=== PATIENT | female | born 1975 | race Caucasian/White ===

== ENCOUNTER 2016-08-13 07:40 | Emergency (ER) | payer OTHER ==
--- NOTE | 2016-08-13 10:07 | DIAGNOSTIC IMAGING REPORT ---
PROCEDURE: CT ABDOMEN/PELVIS W/O CONTRAST INDICATION: Left flank pain. Initial encounter. TECHNIQUE: Noncontrast axial images were obtained of the entire abdomen and pelvis with sagittal and coronal reformations. COMPARISON: None. FINDINGS: ABDOMEN: Mild bibasilar infiltrates versus atelectasis. Heart size is normal. Liver, gallbladder, pancreas, spleen and adrenal glands are normal. Normal kidneys and ureters without calculi or hydronephrosis. Minor atherosclerosis of the aorta. Nonspecific bowel gas pattern. PELVIS: Normal appendix. IUD in place. Normal bladder without calculi. No pelvic mass, free fluid or inflammatory changes. Bones are unremarkable. IMPRESSION: 1. No evidence of urolithiasis 2. IUD in place 3. Small bibasilar infiltrates versus atelectasis 4. Results discussed with Dr. Nolan All CT scans at this facility use dose modulation, iterative reconstruction, and/or weight-based dosing when appropriate to reduce radiation dose to as low as reasonably achievable.
--- NOTE | 2016-08-13 10:41 | ED NURSING NOTES ---
Clinical Report - Nurses [facility] [address] [place] [address] 08/13/2016 7:39 Patient: ENOCH GRIFFITH TRIAGE Triage time 07:59. Acuity: LEVEL 3. Chief Complaint: (LEFT SIDED PAIN). Alert. SEPSIS SCREEN: Sepsis Screen. Negative (no infection suspected/documented). --08:04 Ashlee Lopez R.N. 07:59 08/13/16. BP: 124/74. HR: 82. RR: 18. O2 saturation: 96%. Temp: 98.7 F. Pain level now: 08/20. --08:04 Ashlee Lopez R.N. Weight: 78.4 kg stated. Height/Length: 62 inches Per Patient. BMI: 31.6. --08:01 Ashlee Lopez R.N. Medications Albuterol Sulfate Inhalation. --08:01 Ashlee Lopez R.N. Allergies None. --08:01 Ashlee Lopez R.N. History Arrived by private vehicle, and unaccompanied. Primary physician ([facility] in [place]). This started yesterday. PAST MEDICAL HX: Uses an intrauterine device. Denies current . SOCIAL HX: Heavy tobacco smoker (cigarette)- less than 1 pack per day. No alcohol use. NUTRITIONAL RISK ASSESSMENT: The nutritional risk assessment revealed no deficiencies. FUNCTIONAL ASSESSMENT: Functional assessment: no impairments noted. --08:04 Ashlee Lopez R.N. PROBLEMS: Epicondylitis. --08:02 Ashlee Lopez R.N. ADDITIONAL SURGERIES: C sections x 2. Foot surgery. --08:02 Ashlee Lopez R.N. Interventions ID band on patient. To room. --08:04 Ashlee Lopez R.N. PHYSICAL ASSESSMENT 08:04 08/13/16. GENERAL / NEURO / PSYCH: Alert. Oriented X 4. Appears in no acute distress. RESPIRATORY: Respirations not labored. --08:04 Ashlee Lopez R.N. NURSING PROGRESS NOTES 08:04 08/13/16. Patient gowned. Patient identifiers checked. Call light placed in reach. Bed placed in lowest position. Patient ready for evaluation- chart flagged. --08:04 Ashlee Lopez R.N. 09:22 08/13/2016 Toradol (Ketorolac Tromethamine) IM 60 mg given. Given in the left gluteus miguel. Allergies verified and confirmed 5 rights. --09:22 Ashlee Lopez R.N. DISPOSITION / DISCHARGE Departure time: 1049. No learning barriers present. Discharge instructions provided and reviewed. Reviewed medication(s) information. Prescription(s) given to the patient. Reviewed referral to family practice for followup. Verbalized understanding. Written instructions provided. The patient was discharged home. She left the Emergency Department ambulatory and via private vehicle. --10:52 Ashlee Lopez R.N. 10:49 08/13/16. BP: 117/65. HR: 63. RR: 18. O2 saturation: 95%. Temp: 98.6 F. Pain level now: 05/23. --10:52 Ashlee Lopez R.N. Locked/Released at 08/13/2016 13:22 by Ashlee Lopez R.N.
--- NOTE | 2016-08-13 10:41 | ED NURSING NOTES ---
Clinical Report - Nurses [facility] [address] [place] [address] 08/13/2016 7:39 Patient: ENOCH GRIFFITH TRIAGE Triage time 07:59. Acuity: LEVEL 3. Chief Complaint: (LEFT SIDED PAIN). Alert. SEPSIS SCREEN: Sepsis Screen. Negative (no infection suspected/documented). --08:04 Ashlee Lopez R.N. 07:59 08/13/16. BP: 124/74. HR: 82. RR: 18. O2 saturation: 96%. Temp: 98.7 F. Pain level now: 08/20. --08:04 Ashlee Lopez R.N. Weight: 78.4 kg stated. Height/Length: 62 inches Per Patient. BMI: 31.6. --08:01 Ashlee Lopez R.N. Medications Albuterol Sulfate Inhalation. --08:01 Ashlee Lopez R.N. Allergies None. --08:01 Ashlee Lopez R.N. History Arrived by private vehicle, and unaccompanied. Primary physician ([facility] in [place]). This started yesterday. PAST MEDICAL HX: Uses an intrauterine device. Denies current . SOCIAL HX: Heavy tobacco smoker (cigarette)- less than 1 pack per day. No alcohol use. NUTRITIONAL RISK ASSESSMENT: The nutritional risk assessment revealed no deficiencies. FUNCTIONAL ASSESSMENT: Functional assessment: no impairments noted. --08:04 Ashlee Lopez R.N. PROBLEMS: Epicondylitis. --08:02 Ashlee Lopez R.N. ADDITIONAL SURGERIES: C sections x 2. Foot surgery. --08:02 Ashlee Lopez R.N. Interventions ID band on patient. To room. --08:04 Ashlee Lopez R.N. PHYSICAL ASSESSMENT 08:04 08/13/16. GENERAL / NEURO / PSYCH: Alert. Oriented X 4. Appears in no acute distress. RESPIRATORY: Respirations not labored. --08:04 Ashlee Lopez R.N. NURSING PROGRESS NOTES 08:04 08/13/16. Patient gowned. Patient identifiers checked. Call light placed in reach. Bed placed in lowest position. Patient ready for evaluation- chart flagged. --08:04 Ashlee Lopez R.N. 09:22 08/13/2016 Toradol (Ketorolac Tromethamine) IM 60 mg given. Given in the left gluteus miguel. Allergies verified and confirmed 5 rights. --09:22 Ashlee Lopez R.N. DISPOSITION / DISCHARGE Departure time: 1049. No learning barriers present. Discharge instructions provided and reviewed. Reviewed medication(s) information. Prescription(s) given to the patient. Reviewed referral to family practice for followup. Verbalized understanding. Written instructions provided. The patient was discharged home. She left the Emergency Department ambulatory and via private vehicle. --10:52 Ashlee Lopez R.N. 10:49 08/13/16. BP: 117/65. HR: 63. RR: 18. O2 saturation: 95%. Temp: 98.6 F. Pain level now: 05/23. --10:52 Ashlee Lopez R.N. Locked/Released at 08/13/2016 13:22 by Ashlee Lopez R.N.
--- NOTE | 2016-08-13 10:41 | ED ORDER SUMMARY ---
..... Patient: ENOCH GRIFFITH OrderSheet [facility] VisitID: [id number] [place] [address] 40y, F Registration Date/Time: 08/13/2016 ORDER SHEET Weight: 78.4 kg (stated) Allergies: None GENERAL ORDERS: UA-Culture if indicated Urgent (08:29 08/13/2016 LSullivan R.N. verbal order read back to Jean-Pierre VALLES) (Ack 8:31 LNations ER Tech1) (9:18 LSullivan R.N.) Urine Urgent (08:30 08/13/2016 LSullivan R.N. verbal order read back to Jean-Pierre VALLES) (Ack 8:31 LNations ER Tech1) (9:18 LSullivan R.N.) CT Abd/Pel wo Cont Urgent (09:15 08/13/2016 Vikas VALLES) (Ack 9:16 LNations ER Tech1) (13:21 LSullivan R.N.) MEDICATION ORDERS: Toradol IM 60 mg (NOW) (09:15 08/13/2016 Vikas VALLES) (Ack 9:18 LSullivan R.N.) (9:22 LSullivan R.N.) IV FLUIDS: ORDER SHEET NOTES: [Electronically signed by Gloria Nolan MD (10:55 08/13/2016)] [Electronically signed by Ashlee Lopez R.N. (13:22 08/13/2016)] [Electronically locked/signed by Ashlee Lopez R.N. (13:22 08/13/2016)]
--- NOTE | 2016-08-13 10:41 | ED CLINICAL REPORT ---
Clinical Report - Physicians/Mid Levels [facility] [address] [place] [address] 08/13/2016 7:39 Patient: ENOCH GRIFFITH Time Seen: 09:04. Arrived- By private vehicle. Historian- patient. HISTORY OF PRESENT ILLNESS Chief Complaint: FLANK PAIN. It is described as "pain" and it is described as located in the left flank. This started yesterday and is still present. At its maximum, severity described as moderate. When seen in the E.D., severity described as moderate. Modifying factors- worsened by movement, cough, deep breaths and supine position. Not relieved by anything. No nausea, loss of appetite, vomiting or diarrhea. (Patient states that she has not been doing any heavy lifting or any twisting.). Similar symptoms previously: None. Recent medical care: Not recently seen/assessed. REVIEW OF SYSTEMS No constipation, black stools, hematemesis, difficulty with urination or pain with urination. No urinary frequency, bloody stools, fever, headache or sore throat. No blurred vision, chest pain, difficulty breathing, cough or joint pain. No skin rash, chills or back pain. Denies current . All systems otherwise negative, except as recorded above. PAST HISTORY Problems: Epicondylitis. Additional Surgeries: C sections x 2. Foot surgery. Medications: Albuterol Sulfate Inhalation. Allergies: None. SOCIAL HISTORY Smoker- current status unknown. No alcohol use or drug use. ADDITIONAL NOTES The nursing notes have been reviewed. PHYSICAL EXAM Vital Signs: 08/13/2016 07:59 BP: 124/74. HR: 82. RR: 18. O2 saturation: 96%. Temp: 98.7 F. Pain level now: 5/10. Have been reviewed. Appearance: Alert. Oriented X3. No acute distress. Eyes: Pupils equal, round and reactive to light. Eyes normal inspection. ENT: Nose normal. Neck: Normal inspection. CVS: Normal heart rate and rhythm. Heart sounds normal. Pulses normal. Respiratory: No respiratory distress. Breath sounds normal. (Pt has tenderness at the inferior-most point of the L anterior rib cage, in the mid-clavicular line.). Abdomen: Soft. Moderate tenderness (L flank). Back: Normal inspection. No CVA tenderness. Skin: Skin warm and dry. Normal skin color. No rash. Normal skin turgor. Extremities: Extremities exhibit normal ROM. No lower extremity edema. Neuro: Oriented X 3. No motor deficit. No sensory deficit. LABS, X-RAYS, AND EKG Abdominal CT: Normal study. Normal aorta. Normal liver, spleen, pancreas, gallbladder and adrenals. Normal kidneys. Uterus normal. Adnexa normal. Bladder normal. Appendix normal. No mass. No free fluid. No bony lesion. No diverticulitis. Study type: renal stone evaluation; abdomen and pelvis. Abdominal CT performed without contrast. The study was independently viewed by me, interpreted by the radiologist and contemporaneously by me and discussed with the radiologist. Prior studies were not available for comparison. Laboratory Tests: UA-Culture if indicated: (J CARLOS: 08/13/2016 08:24) ( [facility] 08/13/2016 08:46) Final results Test Result Flag Units (Reference) URINE COLOR YELLOW URINE APPEARANCE CLEAR URINE GLUCOSE NEGATIVE (NEGATIVE) URINE BILIRUBIN NEGATIVE (NEGATIVE) URINE KETONE NEGATIVE (NEGATIVE) URINE SPECIFIC GRAVITY 1.020 (1.010-1.030) URINE PH 6.0 (5.0-8.0) URINE PROTEIN NEGATIVE (NEGATIVE) URINE UROBILINOGEN 0.2 EU/dL (0.2-1.0) URINE NITRITE NEGATIVE (NEGATIVE) URINE BLOOD 1+ (NEGATIVE) URINE LEUK ESTERASE NEGATIVE (NEGATIVE) URINE RBC 0-1 rbc/hpf (0-1) URINE WBC 1-3 wbc/hpf (0-1) URINE EPITHELIAL CELLS 1-3 EPI/hpf (0-5) URINE BACTERIA FEW (1+) (NONE SEEN) URINE COMMENT CULT NOT INDICATED URINE CULTURES ARE SET-UP BASED ON THE FOLLOWING CRITERIA:POSITIVE NITRITEPOSITIVE LEUKOCYTE ESTERASEGREATER THAN 10 WHITE BLOOD CELLSMODERATE (2+) OR GREATER BACTERIA Urine: (J CARLOS: 08/13/2016 08:24) ( [facility] 08/13/2016 08:47) Final results Test Result Flag Units (Reference) URINE NEGATIVE . Pulse Oximetry: 08/13/2016 07:59 O2 saturation: 96%. Interpretation: normal. PROGRESS AND PROCEDURES Course of Care: jeni did drive herself to the emergency department, so she was given Toradol for symptomatic relief. Urinalysis did not show evidence of an infection; however trace blood was present. I did order a CT of the abdomen and pelvis without contrast to evaluate for potential urinary calculi, and this was negative. No emergent condition was identified. Patient counseled in person regarding the patient's stable condition, test results, diagnosis and need for follow-up. Old medical records reviewed. Disposition: Discharged. Condition: stable and improved. CLINICAL IMPRESSION Acute left flank pain Abdominal muscle strain INSTRUCTIONS Drink plenty of fluids. (your CT scan and urinalysis looked good. No emergent cause of her pain was found. You have most likely strained your abdominal muscles on the left, where they attach to your rib cage.). Warnings: GENERAL WARNINGS: Return or contact your physician immediately if your condition worsens or changes unexpectedly, if not improving as expected, or if other problems arise. Your Current Medications: CONTINUE TAKING THE FOLLOWING MEDICATIONS: Albuterol Sulfate Inhalation. Prescription Medications: Ibuprofen 800 mg tablets: take 1 tablet orally every 8 hours as needed for pain. Dispense fifteen (15). No refill. Ultram 50 mg: take 1 orally every 6 hours as needed for pain. Dispense ten (10). No refills. Substitution is permissible. Follow-up: Follow up with your doctor as needed. Understanding of the discharge instructions verbalized by patient. (Electronically signed by Gloria Nolan MD 08/13/2016 10:55)
--- NOTE | 2016-08-13 10:41 | ED ORDER SUMMARY ---
..... Patient: ENOCH GRIFFITH OrderSheet [facility] VisitID: [id number] [place] [address] 40y, F Registration Date/Time: 08/13/2016 ORDER SHEET Weight: 78.4 kg (stated) Allergies: None GENERAL ORDERS: UA-Culture if indicated Urgent (08:29 08/13/2016 LSullivan R.N. verbal order read back to Jean-Pierre VALLES) (Ack 8:31 LNations ER Tech1) (9:18 LSullivan R.N.) Urine Urgent (08:30 08/13/2016 LSullivan R.N. verbal order read back to Jean-Pierre VALLES) (Ack 8:31 LNations ER Tech1) (9:18 LSullivan R.N.) CT Abd/Pel wo Cont Urgent (09:15 08/13/2016 Vikas VALLES) (Ack 9:16 LNations ER Tech1) (13:21 LSullivan R.N.) MEDICATION ORDERS: Toradol IM 60 mg (NOW) (09:15 08/13/2016 Vikas VALLES) (Ack 9:18 LSullivan R.N.) (9:22 LSullivan R.N.) IV FLUIDS: ORDER SHEET NOTES: [Electronically signed by Gloria Nolan MD (10:55 08/13/2016)] [Electronically signed by Ashlee Lopez R.N. (13:22 08/13/2016)] [Electronically locked/signed by Ashlee Lopez R.N. (13:22 08/13/2016)]
--- NOTE | 2016-08-13 13:22 | ED DISCHARGE INSTRUCTIONS ---
Patient: ENOCH GRIFFITH General Instructions [facility] VisitID: [id number] [place] [address] 40y, F Registration Date/Time: 08/13/2016 Acute left flank pain Abdominal muscle strain INSTRUCTIONS Drink plenty of fluids. (your CT scan and urinalysis looked good. No emergent cause of her pain was found. You have most likely strained your abdominal muscles on the left, where they attach to your rib cage.). Warnings: GENERAL WARNINGS: Return or contact your physician immediately if your condition worsens or changes unexpectedly, if not improving as expected, or if other problems arise. Your Current Medications: CONTINUE TAKING THE FOLLOWING MEDICATIONS: Albuterol Sulfate Inhalation. Prescription Medications: Ibuprofen 800 mg tablets: take 1 tablet orally every 8 hours as needed for pain. Dispense fifteen (15). No refill. Ultram 50 mg: take 1 orally every 6 hours as needed for pain. Dispense ten (10). No refills. Substitution is permissible. Follow-up: Follow up with your doctor as needed. Understanding of the discharge instructions verbalized by patient. ADDITIONAL INFORMATION Flank Pain[Uncertain Cause] The flank is the area between the upper abdomen and the back. Pain here is often related to the kidneyan infection or a kidney stone. Other causes of flank pain include spinal arthritis, pinched nerve from a disk injury, back muscle strain or spasm. The cause of your flank pain is not certain and further tests may be needed. Home Care: You may use acetaminophen (Tylenol) or ibuprofen (Motrin, Advil) to control pain, unless another medicine was prescribed. [NOTE: If you have chronic liver or kidney disease or ever had a stomach ulcer or GI bleeding, talk with your doctor before using these medicines.] If the cause of your pain is coming from the muscles, ice or heat may give relief. During the first two days after injury, apply an ICE PACK to the painful area for 20 minutes every 2-4 hours. This will reduce swelling and pain. HEAT (hot shower, hot bath or heating pad) works well for muscle spasm. You can start with ice, then switch to heat after two days. Some patients feel best alternating ice and heat treatments. Use the one method that feels the best to you. Follow Up with your doctor or as advised by our staff for further evaluation if your symptoms are not improving over the next few days. Return Promptly or contact your doctor if any of the following occur: Repeated vomiting Fever of 100.4F (38C) or higher, or as directed by your healthcare provider Increasing flank pain Pain that spreads to the front of the abdomen Dizziness, weakness or fainting Blood in your urine Burning with urination or frequent urination Increasing pain in the leg Numbness or weakness in the leg Muscle Strain, Abdomen A muscle strain is a stretching and tearing of muscle fibers. The abdomen is protected by a thick wall of muscle in the front and sides. These muscles help with twisting and bending forward. Repeated coughing, lifting heavy objects or sudden jerking movements can sometimes cause a muscle strain in the abdomen. This causes pain that is worse when you move. The area may also feel tender or be swollen and bruised. Home Care: Make an ice pack (ice cubes in a plastic bag, wrapped in a towel) and apply over the injured area for 20 minutes every 1-2 hours the first day. You should continue with ice packs 3-4 times a day for the next two days. Continue the use of ice packs for relief of pain and swelling as needed. You may use acetaminophen (Tylenol) or ibuprofen (Motrin, Advil) to control pain, unless another pain medicine was prescribed. [NOTE: If you have liver or kidney disease, a stomach ulcer or GI bleeding, talk with your doctor before using these medicines.] Follow Up with your doctor or this facility if you are not improving within the next five days. Get Prompt Medical Attention if any of the following occur: Pain increases or moves to the right lower abdomen (just below the waistline) Fever of 100.4 F (38 C) or higher, or as directed by your healthcare provider Vomiting Severe abdominal pain that spreads to the back or toward the groin Dizziness, weakness or fainting Blood in the urine Unexpected vaginal bleeding (for women) You have been given the following additional information: Flank Pain, Uncertain Cause Muscle Strain, Abdomen (Electronically signed by Gloria Nolan MD 08/13/2016 10:55)
--- NOTE | 2016-08-13 13:22 | ED MAR SUMMARY ---
..... Medication Administration Record [facility] [address] [address] Patient: ENOCH GRIFFITH Visit ID: [id number] 40y, F Weight: 78.4 kg Height/Length: 62 in BMI: 31.6 ALLERGIES: None Given 09:22 08/13/2016 Ashlee Lopez R.N. Medication Administered: TORADOL [IM] (KETOROLAC TROMETHAMINE), Dose: 60 mg IM. Medication Ordered: Toradol IM 60 mg (NOW).
--- NOTE | 2016-08-13 13:22 | ED MED RECONCILIATION SUMMARY ---
Patient: ENOCH GRIFFITH Medication Reconciliation Report [facility] VisitID: [id number] [place] [address] 40y, F Registration Date/Time: 08/13/2016 Weight: 78.4 kg Height/Length: 62 in. BMI: 31.6 ALLERGIES: None The patient's Home Medications are listed below: CONTINUE TAKING THE FOLLOWING MEDICATIONS: Albuterol Sulfate Inhalation The source(s) of the original Home Medication information: Not obtained. The following Medications were given to the patient in the Emergency Department: Toradol [IM] IM 60 mg, administered: 08/13/2016 9:22:00 AM The following Medications were prescribed to the patient: Ibuprofen 800 mg tablets: take 1 tablet orally every 8 hours as needed for pain. Dispense fifteen (15). No refill. -- Gloria Nolan MD Ultram 50 mg: take 1 orally every 6 hours as needed for pain. Dispense ten (10). No refills. Substitution is permissible. -- Gloria Nolan MD
--- NOTE | 2016-08-13 13:22 | ED MED RECONCILIATION SUMMARY ---
Patient: ENOCH GRIFFITH Medication Reconciliation Report [facility] VisitID: [id number] [place] [address] 40y, F Registration Date/Time: 08/13/2016 Weight: 78.4 kg Height/Length: 62 in. BMI: 31.6 ALLERGIES: None The patient's Home Medications are listed below: CONTINUE TAKING THE FOLLOWING MEDICATIONS: Albuterol Sulfate Inhalation The source(s) of the original Home Medication information: Not obtained. The following Medications were given to the patient in the Emergency Department: Toradol [IM] IM 60 mg, administered: 08/13/2016 9:22:00 AM The following Medications were prescribed to the patient: Ibuprofen 800 mg tablets: take 1 tablet orally every 8 hours as needed for pain. Dispense fifteen (15). No refill. -- Gloria Nolan MD Ultram 50 mg: take 1 orally every 6 hours as needed for pain. Dispense ten (10). No refills. Substitution is permissible. -- Gloria Nolan MD
--- NOTE | 2016-08-13 13:22 | ED MAR SUMMARY ---
..... Medication Administration Record [facility] [address] [place] [address] Patient: ENOCH GRIFFITH Visit ID: [id number] 40y, F Weight: 78.4 kg Height/Length: 62 in BMI: 31.6 ALLERGIES: None Given 09:22 08/13/2016 Ashlee Lopez R.N. Medication Administered: TORADOL [IM] (KETOROLAC TROMETHAMINE), Dose: 60 mg IM. Medication Ordered: Toradol IM 60 mg (NOW).
== END 2016-08-13 10:49 | disposition home or self-care (01) ==
LOC: ED SRH 07:40
DX: S39.011A Strain of muscle, fascia and tendon of abdomen, initial encounter (principal); X58.XXXA Exposure to other specified factors, initial encounter; Y93.9 Activity, unspecified; Y92.9 Unspecified place or not applicable; Y99.9 Unspecified external cause status; F17.219 Nicotine dependence, cigarettes, with unspecified nicotine-induced disorders; Z88.8 Allergy status to other drugs, medicaments and biological substances
CPT/HCPCS: 90004; 93070